=== PATIENT | female | born 1975 | race African-American/Black ===

== ENCOUNTER 2017-08-30 10:32 | Emergency (ER) | payer SELFPAY ==
--- NOTE | 2017-08-30 11:17 | EDM.PDOC ---
ED HPI GENERAL MEDICAL PROBLEM - General Chief Complaint: Eye Problems Stated Complaint: EYE PROBLEMS Time Seen by Provider: 08/30/17 11:06 Source of Information: Reports: Patient History Limitations: Reports: No Limitations - History of Present Illness INITIAL COMMENTS - FREE TEXT/NARRATIVE: Patient is a 42-year-old female presents ED complaining of swelling and itching to the eyelids of both eyes. States she had some eczema noted to the left side of her neck and face. Has been using a [id number] lotion to these areas. The eczema to the face has resolved. Developed eczema to the eyelids that has not improved. She's tried Benadryl and Zyrtec with no relief. There is no pain , no drainage, no vision changes, no foreign body sensation to the eye, no painful EOMs, or fever present. She states the lotion is new. Other than that she denies any medications, makeup, soaps, and or detergents. She does have seasonal allergies. She states the flakiness has increased. Again there has been no drainage and there is no pain present. Patient does have a history of hypertension also type 2 diabetes. She is on lisinopril and Capozide. Patient is here for work from [place]. - Related Data Allergies Allergy/AdvReac Type Severity Reaction Status Date / Time No Known Allergies Allergy Verified 08/30/17 10:40 Home Meds: Home Meds Cephalexin [Keflex] 500 mg PO TID #21 capsule 08/30/17 [Rx] Lisinopril 40 mg PO DAILY 08/30/17 [History] glipiZIDE [Glucotrol XL] 10 mg PO BRK 08/30/17 [History] Social & Family History - Tobacco Use Smoking Status *Q: Never Smoker Second Hand Smoke Exposure: No - Caffeine Use Caffeine Use: Reports: None - Recreational Drug Use Recreational Drug Use: No ED ROS GENERAL - Review of Systems Review Of Systems: ROS reveals no pertinent complaints other than HPI. ED EXAM GENERAL W FULL EYE - Physical Exam Exam: See Below Exam Limited By: No Limitations General Appearance: Alert, WD/WN, No Apparent Distress Visual Acuity (R) 20/: 100 Visual Acuity (L) 20/: 100 With Correction: No Eyelids: Bilateral: Other (Mildly red with flaking noted no pain on palpation. No drainage noted on palpation. Excoriations noted. This is noted to the upper and lower eyelids.) Conjunctiva & Sclera: Bilateral: Normal Appearance Cornea Exam: Bilateral: Normal Appearance Extraocular Movements: Bilateral: Intact Pupillary Size: Bilateral: 4 mm Pupillary Reaction: Bilateral: Brisk Ears: Hearing Grossly Normal Nose: Normal Inspection Throat/Mouth: Normal Inspection, Normal Oropharynx, Normal Voice, No Airway Compromise Head: Atraumatic Neck: Normal Inspection, Supple, Non-Tender Respiratory/Chest: No Respiratory Distress, No Accessory Muscle Use Cardiovascular: Normal Peripheral Pulses, Regular Rate, Rhythm Extremities: Normal Inspection Neurological: Alert, Oriented, CN II-XII Intact, Normal Cognition, No Motor/ Sensory Deficits Psychiatric: Normal Affect, Normal Mood Skin Exam: Warm, Dry Course - Vital Signs Last Recorded V/S: Last Vital Signs Temp 97.5 F 08/30/17 10:41 Pulse 101 H 08/30/17 10:41 Resp 18 08/30/17 10:41 BP 154/88 H 08/30/17 10:46 Pulse Ox 100 08/30/17 10:41 - Re-Assessments/Exams Free Text/Narrative Re-Assessment/Exam: Patient has atopic dermatitis of the eyelids. She has a history of eczema to her face that resolved with moisturizing lotion. Does not look infected but because patient is a transient I will start the patient on Keflex 500 mg 3 times a day for 7 days. In addition she'll apply hydrocortisone cream 1% to the eyelids for 5 days twice daily, ensuring that she does not get the ointment into the eyes and washes her hands after application. Will have her take Pepcid 40 mg every day for the next 5 days as well. She'll use a heavy coat of aquaphor twice daily as well. Will have patient follow up with PCP upon returning home. I did discuss return precautions with the patient. She's voiced understanding. Discharge instructions as documented. BP Recheck 165/99. Patient has not taken her lisinopril this morning. I've instructed the patient to take her medication upon returning home. Monitor her blood pressure daily. She is a RN and understands. Departure - Departure Time of Disposition: 11:21 Disposition: Home, Self-Care 01 Condition: Good Clinical Impression: Atopic dermatitis of eyelid Qualifiers: Laterality: unspecified laterality Qualified Code(s): H01.139 - Eczematous dermatitis of unspecified eye, unspecified eyelid - Discharge Information Prescriptions: Cephalexin [Keflex] 500 mg PO TID #21 capsule Instructions: Contact Dermatitis, [id number], Rash, [id number] Referrals: PCP,None [Primary Care Provider] - Forms: ED Department Discharge Additional Instructions: You have atopic dermatitis of the eyelids. Treatment will consist of one percent hydrocortisone ointment to the affected eyelids twice daily with heavy coat of Aquaphor. Do not rub the hydrocortisone and your eyes. Wash her hands immediately after application. Take Pepcid 40 mg every day to help with any itching. May use Benadryl 25-50 mg every 6 hours as well for itching. I will start her on Keflex 500 mg 3 times a day for 7 days due to the risk of developing infection. Please follow up with a primary care provider if symptoms are not improving. Return to the ED if you develop any new or worsening symptoms.
== END 2017-08-30 11:42 | disposition home or self-care (01) ==
LOC: JD.ED 10:32
DX: H01.9 Unspecified inflammation of eyelid (principal); Z79.899 Other long term (current) drug therapy
CPT/HCPCS: 99283